=== PATIENT | male | born 1995 | race Caucasian/White ===

== ENCOUNTER 2018-07-22 22:54 | Emergency (ER) | payer MEDICAID ==
[~2018-07-22] VITALS: Ht 188 cm; Wt 127.0 kg
[2018-07-22 23:07] VITALS: BP_SYST 148
[2018-07-23 02:10] VITALS: BP_SYST 140
== END 2018-07-23 02:10 | disposition home or self-care (01) ==
LOC: SED 22:54
DX: R07.81 Pleurodynia (principal); R05 Cough; J45.909 Unspecified asthma, uncomplicated; F17.200 Nicotine dependence, unspecified, uncomplicated
CPT/HCPCS: 71045; 71100; 99284